=== PATIENT | female | born 1975 | race Caucasian/White ===

== ENCOUNTER → 2020-03-09 14:38 | Outpatient (CLI) | payer MEDICAID, SELFPAY ==
[2020-03-05 13:48] VITALS: BMI 24.2
--- NOTE | 2020-03-09 14:39 | US_ITS ---
STUDY: SUPERFICIAL ULTRASOUND - LEFT BUTTOCK REASON FOR EXAM: Female, 44 years old. PALP LUMP ON LEFT BUTTOCK AFTER AFTER A FALL 7 MONTHS AGO TECHNIQUE: A superficial ultrasound was performed with real-time and static paz-scale imaging. COMPARISON: None. FINDINGS: In area of palpable abnormality, there is a hypoechoic, somewhat stellate, avascular collection measuring 4.2 x 5.1 x 1.8 cm. There is a tiny anechoic cyst adjacent to the nodule measuring 1.0 x 0.7 x 0.7 cm. US/Ext Non Vasc Limited/Soft Tiss IMPRESSION: 4.2 x 5.1 x 1.8 cm hypoechoic collection in the area of palpable abnormality. Could represent a chronic hematoma (favored), however, a solid mass is not excluded. Recommend either follow-up ultrasound or additional workup with MRI/CT. Small anechoic cystic collection measuring 1 cm. Electronically Signed: Dillan Madrigal MD ([place]) at 12:21 EDT , Service support ,
== END ==
PROVIDERS: PCP Internal Medicine; Referring Provider Internal Medicine; Visit Provider Internal Medicine
DX: R22.2 Localized swelling, mass and lump, trunk (principal); M79.18 Myalgia, other site
CPT/HCPCS: 76882